=== PATIENT | male | born 1960 | race Caucasian/White ===

== ENCOUNTER 2016-06-27 06:00 | Emergency (ER) | payer OTHER ==
[~2016-06-27] VITALS: Ht 180.3 cm; Wt 106.8 kg
[~2016-06-27 06:00] MED LIST: ASPI325T32 PO; CLOP75TA3 PO; FLUT16SP NASAL; LIP40 PO; MELO-253 PO; METO37.5 PO; RANI150T11 PO; [UNRECOGNIZED DRUG - CODE] PO
[2016-06-27 06:01] VITALS: BP 174/89; PULSE 66; RESP 18; O2SAT 97
[2016-06-27] MEDS ORDERED: 0.9% Sodium Chloride Inhalation Solution ONE (06:07)
[2016-06-27] MEDS ORDERED: Fluorescein 0.6 mg Ophthalmic Strip ONE (06:07)
[2016-06-27] MEDS ORDERED: Tetracaine 0.5% 4 mL Ophthalmic Solution ONE (06:08)
[2016-06-27] MEDS ORDERED: Erythromycin 0.5% 3.5 Gm Ophthalmic Ointment LEFT_EYE STA (06:33)
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
[2016-06-27] MEDS ORDERED: ERYT1OIN7 OP (06:40)
[2016-06-27 07:16] VITALS: BP 174/89; PULSE 66; RESP 18; O2SAT 97
== END 2016-06-27 07:17 | disposition home or self-care (01) ==
LOC: SED 06:00
DX: S05.02XA Injury of conjunctiva and corneal abrasion without foreign body, left eye, initial encounter (principal); W22.8XXA Striking against or struck by other objects, initial encounter; Y93.H9 Activity, other involving exterior property and land maintenance, building and construction; Y92.007 Garden or yard of unspecified non-institutional (private) residence as the place of occurrence of the external cause; Y99.8 Other external cause status; I10 Essential (primary) hypertension; Z87.891 Personal history of nicotine dependence; Z79.82 Long term (current) use of aspirin; Z79.899 Other long term (current) drug therapy; Z88.0 Allergy status to penicillin; Z88.2 Allergy status to sulfonamides